=== PATIENT | male | born 1950 | race Caucasian/White ===

== ENCOUNTER 2017-02-27 07:17 | Day surgery (SDC) | payer MEDICARE, BC ==
[2017-02-21 13:02] VITALS: BMI 29.0
[2017-02-27] MEDS ORDERED: Propofol 10 mg/ml Inj (20 ML) ONE (07:51)
[2017-02-27] MEDS ORDERED: Midazolam 2 MG/2 ML VIAL ONE (08:20)
[2017-02-27] MEDS ORDERED: ePHEDrine 50 mg/ml Inj ONE (08:24)
[2017-02-27] MEDS ORDERED: Sodium Chloride 0.9% 1,000 ML IV SCH (09:15)
[2017-02-27 09:41] VITALS: PULSE 77
[2017-02-27 09:53] VITALS: BP 120/58; RESP 18; TEMP 98.6; O2SAT 95
== END 2017-02-27 10:31 | disposition home or self-care (01) ==
LOC: ENDO 07:17
PROVIDERS: ATTEND Internal Medicine Gastroenterology
DX: Z12.13 Encounter for screening for malignant neoplasm of small intestine (principal); Z85.038 Personal history of other malignant neoplasm of large intestine; D12.2 Benign neoplasm of ascending colon; D12.4 Benign neoplasm of descending colon; D12.5 Benign neoplasm of sigmoid colon; D12.3 Benign neoplasm of transverse colon; K64.8 Other hemorrhoids
CPT/HCPCS: 43235; 45378; J2001; J2250; J2704; J3010; J7040

== ENCOUNTER 2017-08-01 10:23 | Day surgery (SDC) | payer MEDICARE, BC ==
[2017-02-21 13:02] VITALS: BMI 29.0
[2017-08-01] MEDS ORDERED: Sodium Chloride 0.9% 1,000 ML IV SCH (12:00)
[2017-08-01] MEDS ORDERED: Propofol 10 mg/ml Inj (20 ML) ONE (12:03)
[2017-08-01] MEDS ORDERED: Methylene Blue 10 mg/mL(10ml) IV ONE (13:05)
[2017-08-01 15:13] VITALS: BP 120/73; PULSE 69; RESP 18; TEMP 98; O2SAT 97
== END 2017-08-01 16:23 | disposition home or self-care (01) ==
LOC: ENDO 10:23
PROVIDERS: ATTEND Internal Medicine Gastroenterology
DX: Z12.11 Encounter for screening for malignant neoplasm of colon (principal); K76.6 Portal hypertension; K31.89 Other diseases of stomach and duodenum; K29.50 Unspecified chronic gastritis without bleeding; K57.30 Diverticulosis of large intestine without perforation or abscess without bleeding; D50.9 Iron deficiency anemia, unspecified; D12.2 Benign neoplasm of ascending colon; D12.4 Benign neoplasm of descending colon; D12.5 Benign neoplasm of sigmoid colon; D12.3 Benign neoplasm of transverse colon; K64.8 Other hemorrhoids
CPT/HCPCS: 43239; 45381; 45385; 88305; 88312; 88342; J2001; J2704; J3010; J7030; J7040